=== PATIENT | female | born 1930 | race African-American/Black ===

== ENCOUNTER 2020-08-08 08:12 | Emergency (ER) | payer MEDICARE, BC ==
[~2020-08-08] VITALS: Ht 162.6 cm; Wt 61.2 kg
[2020-08-08] MEDS ORDERED: Tetanus/Diptheria/Pertussis IM ONE (08:15)
[2020-08-08] MEDS ORDERED: Lidocaine 1% Plain 30 ml INJ ONE (08:15)
[2020-08-08] MEDS ORDERED: FUROSEMIDE20 M1 ORAL (08:17)
[2020-08-08] MEDS ORDERED: LOSARTAN POTASS25 MG ORAL (08:17)
[2020-08-08] MEDS ORDERED: HYDROCHLOROTH12.5 MG ORAL (08:17)
[2020-08-08] MEDS ORDERED: HYDROcodone/Acetamin 5/325 tab ORAL ONE (08:30)
[2020-08-08] MEDS ORDERED: Ondansetron ODT 8mg tab ORAL ONE (08:30)
[2020-08-08 08:40] VITALS: BP 128/80
--- NOTE | 2020-08-08 08:59 | Emergency Room Report ---
History of Present Illness General Chief Complaint: Multiple Trauma/Fall Source: Patient, EMS Present Illness HPI 89-year-old female, presents with left index finger pain, sharp in nature aggravated by movement, alleviated with rest severity is moderate, intermittent, occurred prior to arrival patient had a mechanical trip and fall presents for evaluation and treatment Allergies: Coded Allergies: No Known Allergies (Unverified , 08/08/20) COVID-19 Screening Contact w/high risk pt: No Experienced COVID-19 symptoms?: No COVID-19 Testing performed [employer]ING [employer]ENT: No Patient History Past Medical History: see triage record Last Menstrual Period: na Reviewed Nursing Documentation: PMH: Agreed; PSxH: Agreed Nursing Documentation-PMH Past Medical History: No History, Except For Hx Hypertension: Yes Review of Systems All Other Systems: negative except mentioned in HPI Physical Exam Vital Signs Date Time Temp Pulse Resp B/P (MAP) Pulse Ox O2 Delivery O2 Flow Rate FiO2 08/08/20 08:10 99.0 72 20 135/85 (102) 99 Room Air General Appearance: well appearing, no apparent distress Head: normocephalic, atraumatic ENT: hearing grossly normal, normal voice Neck: full range of motion, supple Respiratory: no respiratory distress, speaking full sentences Musculoskeletal: other - Right upper extremity: 2+ radial pulse cap refill intact, patient with a deformity at the PIP, status post reduction, flexor tendon intact FDP intact intact cap refill less than 3 seconds Neurologic: alert, normal gait Psychiatric: mood/affect normal Skin: no rash Procedures Joint Reduction Joint Reduction : Consent: Emergent Joint Reduction Site: other - Left PIP Procedural Sedation: No Reduction Attempts: One Pre-Procedure NV Exam: Yes Post-Procedure NV Exam: Yes Post Joint Reduction Film: joint reduced Patient Tolerated: Well Complications: None Laceration/Wound Repair Laceration/Wound Repair : Consent: Emergent Wound Location: upper extremity - left index finger Wound's Depth, Shape: superficial Wound Length (cm): 2 Wound Explored: clean Irrigated w/ Saline (ccs): 3000 Betadine Prep?: Yes Anesthesia: 1% Lidocaine Volume Anesthetic (ccs): 20 Wound Repaired With: sutures Suture Size/Type: 4:0 Number of Sutures: 6 Sterile Dressing Applied?: Yes Splint Applied?: Yes Type of Splint Applied: finger splint Patient Tolerated: Well Complications: None Medical Decision Making Diagnostic Impression: Primary Impression: Open finger fracture Qualified Codes: S62.611B - Displaced fracture of proximal phalanx of left index finger, initial encounter for open fracture ER Course 89-year-old female presents with proximal PIP left index fracture open with tendon exposure neurovascularly intact Patient had fracture reduction, wound was irrigated with 3 L of NS patient given Ancef Tdap Patient referral to hand surgeon Patient will be started on Keflex 4 times daily Return precautions discussed Laboratory Tests Test 08/08/20 09:13 White Blood Count 5.7 K/UL (4.8-10.8) Red Blood Count 3.93 M/UL (4.20-5.40) L Hemoglobin 12.4 G/DL (12.0-16.0) Hematocrit 37.1 % (37.0-47.0) Mean Corpuscular Volume 95 FL (80-99) Mean Corpuscular Hemoglobin 31.5 PG (27.0-31.0) H Mean Corpuscular Hemoglobin Concent 33.3 G/DL (32.0-36.0) Red Cell Distribution Width 11.9 % (11.6-14.8) Platelet Count 260 K/UL (150-450) Mean Platelet Volume 6.0 FL (6.5-10.1) L Neutrophils (%) (Auto) 59.2 % (45.0-75.0) Lymphocytes (%) (Auto) 29.6 % (20.0-45.0) Monocytes (%) (Auto) 7.1 % (1.0-10.0) Eosinophils (%) (Auto) 2.4 % (0.0-3.0) Basophils (%) (Auto) 1.7 % (0.0-2.0) Prothrombin Time Pending Prothrombin Time INR Pending Activated Partial Thromboplast Time Pending Sodium Level Pending Potassium Level Pending Chloride Level Pending Carbon Dioxide Level Pending Blood Urea Nitrogen Pending Creatinine Pending Estimated Glomerular Filtration Rate Pending Glucose Level Pending Calcium Level Pending Total Bilirubin Pending Aspartate Amino Transferase (AST) Pending Alanine Aminotransferase (ALT) Pending Alkaline Phosphatase Pending Total Protein Pending Albumin Pending Globulin Pending Other X-Ray Diagnostic Results Other X-Ray Diagnostic Results : X-Ray ordered: left hand # of Views/Limited Vs Complete: 3 View Indication: Pain EP Interpretation: Yes Interpretation: other - PIP dislocation, fracture noted, open fracture Impression: Other - PIP dislocation, fracture noted, open fracture index finger Electronically Signed by: Manoj Metzger MD Last Vital Signs Date Time Temp Pulse Resp B/P (MAP) Pulse Ox O2 Delivery O2 Flow Rate FiO2 08/08/20 08:40 99.0 83 16 128/80 100 Room Air Disposition: HOME, SELF-CARE Condition: Stable Scripts Acetaminophen (Tylenol) 325 Mg Tablet 650 MG ORAL Q6H PRN for Prn Pain/Headache/Temp > 101, #30 TAB 0 Refills Prov: Manoj Metzger MD 08/08/20 Ibuprofen* (MOTRIN*) 600 Mg Tablet 600 MG ORAL Q8H PRN for FOR PAIN, #30 TAB 0 Refills Prov: Manoj Metzger MD 08/08/20 Cephalexin* (KEFLEX*) 500 Mg Tablet 500 MG ORAL EVERY 6 HOURS, #40 CAP Prov: Manoj Metzger MD 08/08/20 Patient Instructions: Finger Fracture, [id number] Additional Instructions: The patient was provided with discharge instructions, notified to follow-up with a primary care doctor and or specialist in the next 24-48 hours, and to return to the ED if they have worsening of their symptoms. Please note that this report is being documented using 24/7 [employer] technology. This can lead to erroneous entry secondary to incorrect interpretation by the dictating instrument. PLEASE FOLLOW-UP WITH DR. GREER [facility] HAND PHYSICIAN NUMBER IS [phone] THIS WEEK CLINIC IS Thursday NEXT WEEK Thursday Manoj Metzger MD Aug 08, 2020 08:59
[2020-08-08] MEDS ORDERED: ceFAZolin 2gm/50ml Premix 50 ML IV SCH (09:00)
[2020-08-08 09:32] LABS: BASOPHILS % (AUTO) 1.7 % (0.0-2.0); EOSINOPHILS % (AUTO) 2.4 % (0.0-3.0); HEMATOCRIT 37.1 % (37.0-47.0); HEMOGLOBIN 12.4 G/DL (12.0-16.0); LYMPHOCYTES % (AUTO) 29.6 % (20.0-45.0); MEAN CORPUSCULAR VOLUME 95 FL (80-99); MONOCYTES % (AUTO) 7.1 % (1.0-10.0); NEUTROPHILS % (AUTO) 59.2 % (45.0-75.0); PLATELET COUNT 260 K/UL (150-450); RED BLOOD COUNT 3.93 M/UL (4.20-5.40); RED CELL DISTRIBUTION WIDTH 11.9 % (11.6-14.8); WHITE BLOOD COUNT 5.7 K/UL (4.8-10.8)
[2020-08-08] MEDS ORDERED: TYLENOL325 MG ORAL (09:41)
[2020-08-08] MEDS ORDERED: IBUPROFEN600 M1 ORAL (09:41)
[2020-08-08] MEDS ORDERED: CEPHALEXIN500 M1 ORAL (09:41)
[2020-08-08 09:45] LABS: CALCIUM 8.9 MG/DL (8.5-10.1); CREATININE 2.2 MG/DL (0.55-1.30); POTASSIUM 4.2 MMOL/L (3.5-5.1)
[2020-08-08 09:50] VITALS: BP 118/79
[2020-08-08 10:06] LABS: ALBUMIN 3.6 G/DL (3.4-5.0); BILIRUBIN,TOTAL 0.3 MG/DL (0.2-1.0)
--- NOTE | 2020-08-08 10:20 | Diagnostic Imaging Report ---
Indication: Left hand pain, status post reduction of dislocated second proximal interphalangeal joint Technique: 3 views of the left hand Comparison: 7 minutes earlier Findings: Interim reduction of previously demonstrated second proximal interphalangeal joint dislocation. Satisfactory anatomic alignment. No definite associated fracture. There are degenerative changes of the first carpometacarpal joint and of the interphalangeal joints Impression: Evidence of successful reduction of previously demonstrated second proximal interphalangeal joint dislocation. Degenerative changes
--- NOTE | 2020-08-08 10:22 | Diagnostic Imaging Report ---
Indication: Hand pain Technique: 3 views of the left hand Comparison: none Findings: There is posterior dislocation of the second proximal interphalangeal joint, with 90 degrees of dorsal angulation. No associated fracture deformity. There are degenerative changes of the first carpometacarpal joint and of the interphalangeal joints. Impression: Positive for second proximal interphalangeal joint dislocation
== END 2020-08-08 09:50 | disposition home or self-care (01) ==
LOC: EDBD 08:12 → EMR 09:35
DX: S62.611B Displaced fracture of proximal phalanx of left index finger, initial encounter for open fracture (principal); W01.0XXA Fall on same level from slipping, tripping and stumbling without subsequent striking against object, initial encounter; Y92.9 Unspecified place or not applicable; I10 Essential (primary) hypertension; Z23 Encounter for immunization
CPT/HCPCS: 12001; 26725; 36415; 73130; 80053; 85025; 85610; 85730; 90471; 90715; 96365; 99284; J0690; J2001; Q0162; U0002